=== PATIENT | male | born 1985 | race Caucasian/White ===

== ENCOUNTER 2025-01-21 15:42 | Emergency (ER) | payer OTHER ==
[~2025-01-21] VITALS: Ht 180.3 cm; Wt 123.6 kg
[2025-01-21 16:05] VITALS: BP 146/92; PULSE 88; RESP 16; O2SAT 96
[2025-01-21] MEDS ORDERED: AMOX875T2 PO (16:18)
--- NOTE | 2025-01-21 16:19 | Physician Documentation ---
HPI ~ General Chief Complaint: Tooth Problem Stated Complaint: TOOTH PAIN Time Seen by MD: 16:13 Source: patient Mode of Arrival: POV Exam Limitations: no limitations History of Present Illness HPI Comment Patient here for tooth pain. Has history of a temporary crown to the left upper tooth that has fallen out. Now with significant pain. No fevers or chills. Was asked, but otherwise denies review of systems. Medication Reconciliation Allergies: Coded Allergies: Latex, Natural Rubber (Verified Allergy, Intermediate, RASH, 01/21/25) Scheduled Amoxicillin (Amoxicillin), 1 TAB PO Q12H Past Medical History Past Medical History: Asthma Past Surgical History: noncontributory Smoking Status: Light Tobacco User Alcohol Use: None Drug Use: none Lives with: Spouse Occupation: employed Review of Systems ROS Patient complaining of tooth pain. Otherwise review of systems is negative. Physical Exam Vital Signs: RN Vital Signs have been reviewed: Yes, Temperature: 97.6, Source: Oral, Heart Rate: 88, Respiratory Rate: 16, BP: 146/92, Pulse Oximetry: 96, Weight: 123.600 Oxygen Flow Rate: 0 Pulse Oximetry Reflects: adequate oxygenation Physical Exam General: Awake, alert, oriented. No apparent distress Lungs: Clear to auscultation. CV: Regular rate and rhythm. Abdomen: Soft, nontender Oral exam: No obvious decay. No obvious abscess. No hyperplasia of the gums. Progress Results/Orders Results/Orders Vital Signs 01/21/25 01/21/25 16:05 16:33 Temp 97.6 97.6 Pulse 88 Resp 16 B/P (MAP) 146/92 Pulse Ox 96 O2 Flow Rate 0 Medical Decision Making Findings Patient presents secondary to tooth pain after losing a crown. Plans to follow up with dentist next week. No fevers or chills. We will be given antibiotics. Follow up instructions provided. Differential Dx:Considerations: Include: Alveolar fracture, Facial Cellulitis, Periapical abscess, Peridontal abscess, Post-extraction bleeding, Pulpitis, Tooth avulsion, Tooth eruption, Tooth Fracture, Trigeminal neuralgia, Tooth subluxation Departure Time of Disposition: 16:16 Impression: Primary Impression: Toothache Additional Impression: Dental abscess Condition: Stable Discharge Instructions: Dental Pain Additional Instructions: Take antibiotics to completion. Make sure you follow up with your dentist. Recommend that you quit chewing tobacco. This may delay wound healing and make dental pain worse. Warm salt water rinses to help with tooth pain. Return for new or worsening symptoms. Referrals: NO PRIMARY CARE PROVIDER (PCP) Prescriptions Amoxicillin (Amoxicillin) 875 Mg Tablet 1 TAB PO Q12H for 7 Days, #14 TAB Prov: CHARITY ALVARADO NP 01/21/25 Education Educated: Patient Educated regarding: diagnosis, treatment, need for follow up Signature Scribe Signature: No scribe Attestation: The note accurately reflects work and decisions made by me.Charity Alvarado - PATRICIO 01/21/25 16:19 This note was created with the assistance of voice recognition software whereby errors in grammar, syntax, and/or spelling may have occurred despite active proofreading efforts by the author. Please do not hesitate to contact the provider for clarification or for questions regarding the content of this document. CHARITY ALVARADO NP Jan 21, 2025 16:19
[2025-01-21 16:33] VITALS: TEMP 97.6
== END 2025-01-21 16:37 | disposition home or self-care (01) ==
LOC: ER 15:42
DX: K04.7 Periapical abscess without sinus (principal); J45.909 Unspecified asthma, uncomplicated; Z72.0 Tobacco use; Z91.040 Latex allergy status
CPT/HCPCS: 99283